=== PATIENT | male | born 1985 | race Caucasian/White ===

== ENCOUNTER 2016-02-20 19:33 | Emergency (ER) | payer BC ==
[2016-02-20 19:46] VITALS: BP 149/89; TEMP 98.2; BMI 35.9
[2016-02-20] MEDS ORDERED: IBUPROFEN 600 MG TABLET (FP) PO ONE ×2 (20:12→20:15)
--- NOTE | 2016-02-20 20:41 | PDOC ---
History of Present Illness - General Chief Complaint: Respiratory Stated Complaint: FEVER/COUGH Time Seen by Provider: 02/20/16 20:21 History Source: Patient Exam Limitations: No Limitations - History of Present Illness Initial Comments: CHIEF COMPLAINT: 30 y/o afebrile male with no significant PMH c/o flu like symptoms for the past 2 days. HISTORY OF PRESENT ILLNESS: The patient states he has body aches, dry cough and fever up to 102 at home. He took 1 tylenol yesterday with little relief. He denies MOSQUERA, neck pain, n/v/d, CP, SOB, abd pain. Vital signs on arrival are notable for pulse of 103. REVIEW OF SYSTEMS: GENERAL/CONSTITUTIONAL: + fever/chills. No weakness. No weight change. +body aches. HEAD, EYES, EARS, NOSE AND THROAT: No change in vision. No ear pain or discharge. No sore throat. CARDIOVASCULAR: No chest pain or shortness of breath. RESPIRATORY: +dry cough. No wheezing, or hemoptysis. GASTROINTESTINAL: No abd pain, nausea, vomiting, diarrhea. GENITOURINARY: No dysuria, frequency, or change in urination. MUSCULOSKELETAL: No joint or muscle swelling or pain. No neck or back pain. SKIN: No rash or easy bruising. NEUROLOGIC: No headache, vertigo, loss of consciousness, or loss of sensation. PHYSICAL EXAM: GENERAL: The patient is awake, alert, and fully oriented, in no acute distress. He is non toxic but "under the weather" appearing. HEAD: Normal with no signs of trauma. ENT: Pupils equal, round and reactive to light, extraocular movements intact, sclera anicteric, conjunctiva clear. Neck supple. LUNGS: Clear to auscultation bilaterally. Normal excursion. No respiratory distress or use of accessory muscles. CV: RRR, S1/S2, no MRG. Cap refill < 2 sec. CHEST WALL: TTP of anterior chest wall. ABDOMEN: Soft, non-distended, non-tender even to deep palpation, no hepatomegaly or splenomegaly, no masses. EXTREMITIES: Normal range of motion, no edema. NEUROLOGICAL: Normal speech, normal gait. CN II-XII grossly intact. PSYCH: Normal mood, normal affect. SKIN: Warm, dry, normal turgor, no rashes or lesions noted. Past History - Past Medical History Allergies/Adverse Reactions: Allergies Allergy/AdvReac Type Severity Reaction Status Date / Time No Known Allergies Allergy Verified 02/20/16 19:46 Other medical history: denies - Immunization History Td Vaccination: Yes - Psycho/Social/Smoking Cessation Hx Anxiety: No Suicidal Ideation: No Smoking Status: No Smoking History: Never smoked Number of Cigarettes Smoked Daily: 0 *Physical Exam - Vital Signs Last Vital Signs Temp Pulse Resp BP Pulse Ox 98.2 F 103 H 20 149/89 98 02/20/16 19:44 02/20/16 19:44 02/20/16 19:44 02/20/16 19:44 02/20/16 19:44 ED Treatment Course - Medications Given in the ED: ED Medications Discontinued Medications Generic Name Dose Route Start Last Admin Trade Name Lindsey PRN Reason Stop Dose Admin Ibuprofen 600 mg 02/20/16 20:12 02/20/16 20:18 Motrin - PO 02/20/16 20:13 600 mg ONCE ONE Administration Medical Decision Making - Medical Decision Making A/P: 30 y/o male with flu like symptoms who isn't taking any medications for his symptoms. Plan is as follows: 1. PO motrin 2. INfluenza INfluenza - negative HR has improved Will discharge to home with supportive care instructions. Instructed him to return to the ER with any worsening or concerning symptoms. The patient verbalizes understanding of all instructions, has no further questions and is awaiting discharge. *DC/Admit/Observation/Transfer Diagnosis at time of Disposition: Viral URI with cough - Discharge Dispostion Disposition: HOME Condition at time of disposition: Stable - Patient Instructions Printed Discharge Instructions: DI for Viral Upper Respiratory Infection -- Adult, DI for Cough -- Adult Additional Instructions: Discharge Instructions: -Take 650mg of Tylenol every 4 hours for fever -Take 600mg of Motrin every 6 hours for body aches -Take over the counter cough medicine -Drink plenty of fluids and get lots of rest -Drink tea with lemon and honey -Sit up to sleep to help with cough -use cough drops to help with cough -Follow up with your doctor next week -Return to the ER with any worsening or concerning symptoms
[2016-02-20 21:06] VITALS: PULSE 82
== END 2016-02-20 21:26 | disposition home or self-care (01) ==
LOC: JERFT 19:33
DX: J06.9 Acute upper respiratory infection, unspecified (principal); B97.89 Other viral agents as the cause of diseases classified elsewhere
CPT/HCPCS: 87804; 99281-25

== ENCOUNTER 2016-02-21 17:39 | Emergency (ER) | payer BC ==
[2016-02-21 17:49] VITALS: BMI 35.9
[2016-02-21] MEDS ORDERED: SODIUM CHLORIDE 0.9% 1000 ML INFUS.BAG IV ONE ×2 (20:20→20:25)
[2016-02-21] MEDS ORDERED: KETOROLAC TROMETHAMINE 30 MG/1 ML VIAL IVPUSH ONE (20:20)
--- NOTE | 2016-02-21 20:31 | PDOC ---
History of Present Illness - General Chief Complaint: Respiratory Distress Stated Complaint: SYNCOPE/HEADACHE Time Seen by Provider: 02/21/16 19:27 History Source: Patient Exam Limitations: No Limitations - History of Present Illness Initial Comments: 02/21/16 20:26 Patient is a 30-year-old male with no past medical history here with complaints of fever fatigue, left-sided pleuritic chest pain, slight cough, body ache 2 days patient was seen in the emergency room yesterday and given something for fever and pain and released. He returns today states his condition is worsening. States he was so weak the he stood up and just fell back on the bed. PMD: None pMHx: neg psochx: Negative EtOH, cigarette, drugs Pfamx: Noncontributory ALL: NKDA GENERAL/CONSTITUTIONAL: [No fever or chills. No weakness. No weight change.] HEAD, EYES, EARS, NOSE AND THROAT: [No change in vision. No ear pain or discharge. No sore throat.] CARDIOVASCULAR: (+) chest pain (-) shortness of breath.] RESPIRATORY: [No cough, wheezing, or hemoptysis.] GASTROINTESTINAL: [No nausea, vomiting, diarrhea or constipation. No rectal bleeding.] GENITOURINARY: [No dysuria, frequency, or change in urination.] MUSCULOSKELETAL: [No joint or muscle swelling or pain. No neck or back pain.] SKIN AND BREASTS: [No rash or easy bruising.] NEUROLOGIC: [No headache, vertigo, loss of consciousness, or loss of sensation.] PSYCHIATRIC: [No depression or anxiety.] ENDOCRINE: [No increased thirst. No abnormal weight change.] HEMATOLOGIC/LYMPHATIC: [No anemia, easy bleeding, or history of blood clots.] ALLERGIC/IMMUNOLOGIC: [No hives or skin allergy. No latex allergy.] GENERAL: [The patient is awake, alert, and fully oriented, in no acute distress. ] HEAD: [Normal with no signs of trauma.] EYES: [Pupils equal, round and reactive to light, extraocular movements intact, sclera anicteric, conjunctiva clear.] ENT: [Ears normal, nares patent, oropharynx clear without exudates. Moist mucous membranes.] NECK: [Normal range of motion, supple without lymphadenopathy, JVD, or masses.] LUNGS: [Breath sounds equal, clear to auscultation bilaterally. No wheezes, and no crackles.] HEART: [Regular rate and rhythm, normal S1 and S2 tachycardia, without murmur, rub.] ABDOMEN: [Soft, nontender, normoactive bowel sounds. No guarding, no rebound. No masses.] EXTREMITIES: [Normal range of motion, no edema. No clubbing or cyanosis. No cords, erythema, or tenderness.] NEUROLOGICAL: [Cranial nerves II through XII grossly intact. Normal speech, normal gait.] PSYCH: [Normal mood, normal affect.] SKIN: [Warm, Dry, normal turgor, no rashes or lesions noted.] Past History - Past Medical History Allergies/Adverse Reactions: Allergies Allergy/AdvReac Type Severity Reaction Status Date / Time No Known Allergies Allergy Verified 02/21/16 17:49 Home Medications: Ambulatory Orders Azithromycin [Zithromax -] 250 mg PO DAILY #4 tablet 02/22/16 Oxycodone HCl/Acetaminophen [Percocet 5-325 mg Tablet] 1 tab PO Q4H #20 tablet MDD 6 02/22/16 Other medical history: NONE - Immunization History Td Vaccination: Yes - Psycho/Social/Smoking Cessation Hx Anxiety: No Suicidal Ideation: No Smoking Status: No Smoking History: Never smoked Number of Cigarettes Smoked Daily: 0 Hx Alcohol Use: No Drug/Substance Use Hx: No Substance Use Type: None *Physical Exam - Vital Signs Last Vital Signs Temp Pulse Resp BP Pulse Ox 100.5 F H 98 H 19 150/81 97 02/22/16 02:14 02/22/16 02:14 02/22/16 02:14 02/22/16 02:14 02/22/16 02:14 ED Treatment Course - LABORATORY CBC & Chemistry Diagram: 02/21/16 20:00 02/21/16 20:00 - ADDITIONAL ORDERS Additional order review: 02/21/16 20:35 Blood Culture - Preliminary Blood - Peripheral Venous NO GROWTH OBTAINED AFTER 72 HOURS, INCUBATION TO CONTINUE FOR 2 DAYS. 02/21/16 20:00 Blood Culture - Preliminary Blood - Peripheral Venous NO GROWTH OBTAINED AFTER 72 HOURS, INCUBATION TO CONTINUE FOR 2 DAYS. 02/21/16 20:00 RBC 4.76 MCV 87.3 MCHC 32.4 RDW 13.9 MPV 8.9 Neutrophils % 82.0 Lymphocytes % 10.0 Monocytes % 7.7 Eosinophils % 0.1 Basophils % 0.2 - RADIOLOGY Radiology Studies Ordered: Category Date Time Status CHEST CTA [CT] Stat CT Scan 02/21/16 22:07 Completed CHEST PA & LAT [RAD] Stat Radiology 02/21/16 20:20 Completed - Medications Given in the ED: ED Medications Discontinued Medications Generic Name Dose Route Start Last Admin Trade Name Lindsey PRN Reason Stop Dose Admin Acetaminophen 650 mg 02/21/16 20:39 02/21/16 20:45 Tylenol - PO 02/21/16 20:40 650 mg ONCE ONE Administration Azithromycin 500 mg/ Dextrose 250 mls @ 250 mls/hr 02/21/16 22:07 02/21/16 22: 20 IVPB 02/21/16 23:06 250 mls/hr ONCE ONE Administration Ceftriaxone Sodium 1 gm/ 50 mls @ 100 mls/hr 02/21/16 22:07 02/21/16 22:20 Dextrose IVPB 02/21/16 22:36 100 mls/hr ONCE ONE Administration Ketorolac Tromethamine 30 mg 02/21/16 20:20 02/21/16 20:44 Toradol Injection - IVPUSH 02/21/16 20:21 30 mg ONCE ONE Administration Oxycodone/Acetaminophen 1 combo 02/22/16 00:21 02/22/16 00:29 Percocet 5/325 - PO 02/22/16 00:22 1 combo ONCE ONE Administration Sodium Chloride 1,000 ml 02/21/16 20:20 02/21/16 20:38 Normal Saline - IV 02/21/16 20:21 1,000 ml ONCE ONE Administration Sodium Chloride 1,000 ml 02/21/16 20:25 02/21/16 20:39 Normal Saline - IV 02/21/16 20:26 1,000 ml ONCE ONE Administration Sodium Chloride 1,000 ml 02/22/16 01:00 02/22/16 01:17 Normal Saline - IV 02/22/16 01:01 1,000 ml ONCE ONE Administration Medical Decision Making - Medical Decision Making 02/21/16 20:30 Patient is a 30-year-old male with no past medical history here with complaints of fever fatigue, left-sided pleuritic chest pain, slight cough, body ache 2 days. Differential diagnosis viral illness, pneumonia, vs PE Patient temp now Selected Entries 02/21/16 02/21/16 19:45 20:25 Temperature 103.1 F H Pulse Rate [ 103 H Radial] Respiratory 21 Rate Blood Pressure 147/88 [Left Arm] O2 Sat by Pulse 100 Oximetry (%) 02/21/16 22:08 labs reviewed Laboratory Tests 02/21/16 02/21/16 02/21/16 20:00 20:00 20:00 WBC 19.7 H Hgb 13.5 Hct 41.6 Plt Count 249 D-Dimer 491 H Sodium 139 Potassium 3.8 Chloride 100 Carbon Dioxide 29 Anion Gap 10 BUN 13 Creatinine 1.0 Random Glucose 108 H CXR possible infiltrates will give Rocephin 1gm IV and Zithromax 500mg IV 02/21/16 22:09 will cta chest r/o PE 02/22/16 00:20 Patient Name: Palmer Keith This is a preliminary report by imaging chief environmental commitment officer Exam: CT pulmonary angiogram Images: [id number] Clinical indication: Chest pain. Rule out pulmonary embolism. Findings: No filling defects are seen in the main, central or proximal segmental pulmonary arteries. An area of consolidation is noted in the left lower lobe consistent with pneumonia. No other infiltrates nodules or masses are seen. There is no axillary, mediastinal or hilar adenopathy. The heart is within limits for size. There is no pericardial or pleural effusion. The trachea and central bronchi are patent. The thoracic aorta and proximal great vessels have a normal appearance. The visualized upper abdominal viscera appear unremarkable. Impression: No pulmonary embolism identified. Left lower lobe pneumonia. THIS DOCUMENT HAS BEEN ELECTRONICALLY SIGNED Collin Fernández M.D. 02/21/2016 23:41 PAULETTE Wade Please call Imaging Manager Willow [phone]) with questions. Patient continues to be tachycardic will given more fluids, Percocet 1 tab po for pain and fever Patient improved at discharge, d/w him the he may continue to have fever but should continue tylenol and motrin for pain and fever I discussed the physical exam findings, ancillary test results and final diagnoses with the patient. I answered all of the patient's questions. The patient was satisfied with the care received and felt comfortable with the discharge plan and treatment plan. The Patient agrees to follow up with the primary care physician within 24-72 hours. 01/16/17 02:58 Selected Entries 02/22/16 02:14 Temperature 100.5 F H Pulse Rate [ 98 H Radial] Blood Pressure 150/81 [Left Arm] O2 Sat by Pulse 97 Oximetry (%) *DC/Admit/Observation/Transfer Diagnosis at time of Disposition: Pneumonia Qualifiers: Pneumonia type: due to unspecified organism Laterality: left Lung location: lower lobe of lung Qualified Code(s): J18.9 - Pneumonia, unspecified organism - Discharge Dispostion Disposition: HOME Condition at time of disposition: Stable - Prescriptions Prescriptions: Oxycodone HCl/Acetaminophen [Percocet 5-325 mg Tablet] 1 tab PO Q4H #20 tablet MDD 6 Azithromycin [Zithromax -] 250 mg PO DAILY #4 tablet - Patient Instructions Printed Discharge Instructions: DI for Pneumonia -- Adult Additional Instructions: Your Discharge Instructions: You must call primary care physician within 24 hours to arrange follow-up. Return to the Emergency Department with any new, persistent or worsening symptoms, for fever, chills, SOB, dizziness or any other concerning changes that may occur. You will continue to have fever, take tylenol and motrin for pain and fever,
[2016-02-21] MEDS ORDERED: ACETAMINOPHEN 325 MG TABLET (FP) ONE (20:36)
[2016-02-21] MEDS ORDERED: ACETAMINOPHEN 325 MG TABLET (FP) PO ONE (20:39)
[2016-02-21] MEDS ORDERED: KETOROLAC TROMETHAMINE 30 MG/1 ML VIAL ONE (20:42)
[2016-02-21 20:45] LABS: BASOPHIL 0.2 % (0-2.0); EOSINOPHIL 0.1 % (0-4.5); MCH 28.3 pg (25.7-33.7); MCHC 32.4 g/dl (32.0-35.9); MEAN CELL VOLUME 87.3 fl (80-96); MEAN PLT VOLUME 8.9 fl (7.5-11.1); PLATELET COUNT 249 K/MM3 (134-434); RDW 13.9 % (11.9-15.9); WHITE BLOOD COUNT 19.7 K/mm3 (4.0-10.0)
[2016-02-21 21:09] LABS: ALBUMIN 3.5 g/dl (3.4-5.0); ALK PHOS 91 U/L (45-117); ANION GAP 10 (8-16); BILIRUBIN,TOTAL 0.5 mg/dL (0.2-1.0); CALCIUM 8.6 mg/dL (8.5-10.1); CO2 29 mmol/L (21-32); GLUCOSE,RANDOM 108 mg/dL (74-106); SGOT/AST 20 U/L (15-37); SGPT/ALT 31 U/L (12-78); TOT PROT 8.4 g/dl (6.4-8.2)
[2016-02-21] MEDS ORDERED: AZITHROMYCIN IVPB 500 MG in DEXTROSE 5%-WATER - 250 ML IVPB ONE (22:07)
[2016-02-21] MEDS ORDERED: CEFTRIAXONE 1 GM in DEXTROSE 5%-WATER - 50 ML IVPB ONE (22:07)
[2016-02-21] MEDS ORDERED: CEFTRIAXONE 50 ML ONE (22:12)
[2016-02-21] MEDS ORDERED: AZITHROMYCIN IVPB 250 ML IVPB ONE (22:12)
[2016-02-22] MEDS ORDERED: OXYCODONE/APAP 5/325MG COMBO TABLET PO ONE (00:21)
[2016-02-22] MEDS ORDERED: OXYCODONE/APAP 5/325MG COMBO TABLET ONE (00:26)
[2016-02-22] MEDS ORDERED: SODIUM CHLORIDE 0.9% 500 ML INFUS.BAG IV ONE (01:00)
[2016-02-22 02:16] VITALS: BP 150/81; PULSE 98; TEMP 100.5
== END 2016-02-22 03:28 | disposition home or self-care (01) ==
LOC: JER 17:39
PROC: 3E03329 Introduction of Other Anti-infective into Peripheral Vein, Percutaneous Approach (ICD-10-PCS; principal; 2016-02-21)
PROC: 3E03329 Introduction of Other Anti-infective into Peripheral Vein, Percutaneous Approach (ICD-10-PCS; 2016-02-21)
PROC: 3E0333Z Introduction of Anti-inflammatory into Peripheral Vein, Percutaneous Approach (ICD-10-PCS; 2016-02-21)
DX: J18.9 Pneumonia, unspecified organism (principal)
CPT/HCPCS: 36415; 71020-TC; 71275-TC; 80053; 83605; 85025; 85379; 87040; 99285-25

== ENCOUNTER 2016-07-01 05:55 | Day surgery (SDC) | payer BC ==
--- NOTE | 2016-06-23 14:21 | HP ---
DATE OF ADMISSION: DATE OF SURGERY: Undetermined. DATE OF DICTATION: 06/14/2016 BRIEF HISTORY: This is a 30-year-old gentleman has a soft tissue mass overlying the frontal aspect of his right forehead. The mass has been there for 3 years and has gotten significantly larger. It is approximately the size of a golf ball now, and he has pain in the area. He wishes to have this removed. PAST MEDICAL HISTORY: No coronary disease, hypertension, or diabetes. PAST SURGICAL HISTORY: None. MEDICATION: None. ALLERGIES: None. SOCIAL HISTORY: Patient is an environment friendly landscape designer. Does not smoke nor drink. No history of drug use. PHYSICAL EXAMINATION: HEENT: Patient has a golf ball size soft tissue mass overlying the right forehead. The mass is well demarcated, tethered posteriorly, and soft. There is no other significant finding. Lungs: Clear. Heart: Regular rhythm. 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 This can be excised in the operating room under local anesthesia. Will plan for such. The indications, alternatives, complications of procedure discussed. Questions answered. Will plan to obtain written consent on the day of surgery. Sheri CASTELLANO [id number] cc: Geraldo Bear M.D. MTDD
[2016-06-27 11:15] VITALS: BMI 35.9
[2016-07-01] MEDS ORDERED: LIDOCAINE 1%-EPI 1:100,000 30 ML MDV IJ ONE (07:22)
[2016-07-01] MEDS ORDERED: ceFAZolin SODIUM 1 GM VIAL ONE (07:26)
[2016-07-01] MEDS ORDERED: PROPOFOL 20 ML ONE (07:26)
[2016-07-01] MEDS ORDERED: KETOROLAC TROMETHAMINE 30 MG/1 ML VIAL ONE (07:26)
[2016-07-01] MEDS ORDERED: SUCCINYLCHOLINE CHLORIDE 200 MG/10 ML VIAL ONE (07:26)
[2016-07-01] MEDS ORDERED: MIDAZOLAM HCL 2 MG/2 ML SINGLE DOSE VIAL ONE (07:26)
[2016-07-01] MEDS ORDERED: LIDOCAINE 1%/EPI 1:100000 (20 ML MULTI DOSE VIAL) INF ONE ×2 (07:59)
--- NOTE | 2016-07-01 09:16 | OP ---
DATE OF OPERATION: 07/01/2016 PREOPERATIVE DIAGNOSIS: Soft tissue mass, forehead (lipoma). POSTOPERATIVE DIAGNOSIS: Soft tissue mass, forehead (lipoma). PROCEDURE: Excision of soft tissue mass of the forehead, with 4-cm intermediate wound closure. SURGEON: Alberto Matt MD CONTRACT IMPLEMENTATION ANALYST: None. ANESTHESIA: Renan Mallory MD (local plus 1% Xylocaine with epinephrine, approximately 10 mL). ESTIMATED BLOOD LOSS: Minimal. SPECIMEN: Lipoma. INDICATION FOR PROCEDURE: This is a 30-year-old gentleman with a longstanding history of a soft tissue mass overlying his forehead. The mass now is the size of a golf ball and is causing him discomfort. He wished to have this removed. DESCRIPTION OF PROCEDURE: Patient identified and appropriately positioned on the operating room table. After placement of IV sedation, the area prepped and draped in the usual sterile fashion with ChloraPrep and Betadine. Lidocaine 1% with epinephrine was used for anesthesia, approximately 10 mL. A 4-cm incision overlying the mass was made, deepened to subcutaneous tissue. The mass was deep to the frontalis muscle. The muscle was already splayed from the mass. The loose areolar tissue overlying the muscle was then divided sharply and the mass sharply excised off the forehead. Hemostasis was achieved with cautery as needed. The wound irrigated, the operative field examined, noted to be hemostatic. The attenuated frontalis musculature was then reapproximated with interrupted 3-0 chromic sutures and the skin closed in layers with inverted 3-0 Vicryl suture, and the skin closed with 5-0 nylon with Dermabond. At the end of the case, sponge and needle counts were correct. ATTESTATION: Brief operative note handwritten on the preprinted form. Sheri CASTELLANO [id number] cc: MD THOMAS Wallace
[2016-07-01 09:27] VITALS: TEMP 97.9
[2016-07-01 09:30] VITALS: BP 147/84; PULSE 76
[2016-07-01] MEDS ORDERED: ONDANSETRON 4 MG/2 ML VIAL IVPUSH PRN (10:22)
[2016-07-01] MEDS ORDERED: ACETAMINOPHEN 325 MG TABLET (FP) PO PRN (10:22)
[2016-07-01] MEDS ORDERED: oxyCODONE HCL 5 MG TABLET PO PRN ×2 (10:22)
[2016-07-01] MEDS ORDERED: LACTATED RINGERS SOLUTION 1,000 ML IV SCH (10:30)
--- NOTE | 2016-07-07 16:44 | PATH ---
Surgical Pathology Report Patient Name: KASSY ASHBY [facility]. Rec. #: [id number] /Age/Gender: 1985 (Age: 30) / M Account: [id number] Location: [facility] AMBUL[facility] Taken: 07/01/2016 Received: 07/01/2016 Reported: 07/07/2016 Physicians: Alberto Matt Specimen(s) Received SOFT TISSUE MASS FOREHEAD (LIPOMA) Clinical History Soft tissue mass forehead Final Diagnosis FOREHEAD,SOFT TISSUE MASS, EXCISION: MATURE ADIPOSE TISSUE, CONSISTENT WITH LIPOMA. Electronically Signed Claire Jackson M.D. Gross Description Received in formalin labeled "soft tissue mass forehead," is a 4.3 x 3.5 x 1.0 cm irregular, unoriented portion of yellow, lobulated adipose tissue. Sectioning reveals homogeneous yellow, smooth fat. No areas of hemorrhage or necrosis are identified. Correctional Maintenance Technician sections are submitted in 2 cassettes. /07/01/2016 saudi/07/01/2016
== END 2016-07-01 09:10 | disposition home or self-care (01) ==
LOC: FASU 05:55
PROVIDERS: ATTEND Surgery
PROC: 0JB10ZZ Excision of Face Subcutaneous Tissue and Fascia, Open Approach (ICD-10-PCS; principal; 2016-07-01 08:00)
DX: D21.0 Benign neoplasm of connective and other soft tissue of head, face and neck (principal)
CPT/HCPCS: 88304-TC